=== PATIENT | male | born 1950 | race Caucasian/White ===

== ENCOUNTER → 2023-11-20 06:25 | Day surgery (SDC) | payer MEDICARE, SELFPAY | LOC: GI 06:25 | PROVIDERS: ATTENDING PHYSICIAN Internal Medicine Gastroenterology | DX: Z12.11 Encounter for screening for malignant neoplasm of colon (principal); D12.2 Benign neoplasm of ascending colon; K57.30 Diverticulosis of large intestine without perforation or abscess without bleeding; K64.8 Other hemorrhoids | CPT/HCPCS: 45380; 88305 ==

== ENCOUNTER → 2024-02-13 10:13 | Outpatient (REF) | payer MEDICARE, SELFPAY | LOC: HWRCS 10:13 | PROVIDERS: ATTENDING PHYSICIAN Internal Medicine Cardiovascular Disease; FAMILY PHYSICIAN Family Medicine | DX: I10 Essential (primary) hypertension (principal); I77.810 Thoracic aortic ectasia; I47.10 Supraventricular tachycardia, unspecified; I34.0 Nonrheumatic mitral (valve) insufficiency; I45.2 Bifascicular block | CPT/HCPCS: 93306 ==